=== PATIENT | female | born 1995 | race Two or more races ===

== ENCOUNTER 2016-07-31 14:51 | Emergency (ER) | payer MEDICAID, OTHER ==
[~2016-07-31] VITALS: Ht 157.5 cm; Wt 63.5 kg
[2016-07-31 15:03] VITALS: BP 142/74
== END 2016-07-31 15:27 | disposition home or self-care (01) ==
LOC: ER 14:51
DX: L25.9 Unspecified contact dermatitis, unspecified cause (principal)